=== PATIENT | female | born 2000 | race Caucasian/White ===

== ENCOUNTER 2025-02-09 09:55 | Inpatient (IN) ==
--- NOTE | 2025-02-09 10:57 | XRay Report ---
XR chest 1V portable CLINICAL HISTORY: Pneumonia. COMPARISON STUDY: No previous studies for comparison. FINDINGS: Left clavicular internal fixation is incidentally noted. Lung volumes are mildly diminished . Cardiac size is normal. Mediastinal contours are normal. There is no pneumothorax or pleural effusi on. There is apparent mild asymmetric left lower lung opacity. IMPRESSION: Mild left lower lung opacity. Although possibly artifactual or atelectatic, pneumonia cou ld appear similar. Radiographic follow-up is recommended to ensure resolution. ACT 112: Negative or not required by law. Electronically signed by: Awais Hernandez M.D. 02/09/2025 10:56 AM
[2025-02-09 11:09] LABS: Hematocrit (blood only) 33.5 % (37.0-47.0); Hemoglobin 11.6 g/dl (12.0-16.0); Immature Granulocytes # (auto) 0.10 K/uL (0.01-0.20); Immature Granulocytes % (auto) 0.6 %; Mean Corpuscular Hemoglobin 29.4 pg (25.0-34.0); Mean Corpuscular Volume 85.0 fL (80.0-100.0); Platelet Count 217 K/uL (130-400); RDW Standard Deviation 36.0 fL (36.4-46.3); Red Blood Count 3.94 M/uL (4.20-5.40); White Blood Count 16.89 K/ul (4.8-10.8)
--- NOTE | 2025-02-09 11:32 | Emergency Department Note ---
Impression & Plan Pyelonephritis, Cystitis ED Provider Note NAME: LEFTY TO AGE: 24 SEX: F : 2000 ARRIVES VIA: Walk-In INFORMANT: Patient, ED PROVIDER(S): Liam Baxter MD CHIEF COMPLAINT: Left flank pain HPI: This is a 24-year-old female presented for left flank pain. She notes body wide aching but also particularly worse on her left side. She notes pain is in her chest, back, flank. She reports feel he has a flu. She has no dysuria,, hematuria. She has no shortness of breath. She has mild pleurisy otherwise. ROS: See above HPI for pertinent positives & negatives. A total of 10 systems reviewed and were otherwise negative. PAST MEDICAL HISTORY: See Below PAST SURGICAL HISTORY: See Below FAMILY HISTORY: See Below SOCIAL HISTORY: See Below HOME MEDICATIONS: See Below ALLERGIES: See Below VITALS: See Below PHYSICAL EXAMINATION: General: resting comfortably in no acute distress Head: Normocephalic and atraumatic Eyes: Normal inspection, extraocular muscles intact Ear, nose, throat: Normal external exam Neck: Normal range of motion Respiratory: lungs clear to auscultation bilaterally Cardiovascular: Regular rate/rhythm, no murmur GI: soft, nontender, no guarding or rebound Extremities: nontender, moves all extremities Neuro: The patient awake and alert, appropriately conversive, no focal deficits, symmetric faces Skin: Warm, dry, and intact MEDICAL DECISION MAKING: This is a 24-year-old female present for left flank pain. Consider PE, pneumonia, pyelonephritis, sepsis. Patient is tachycardic without significant hypotension. Not hypoxic. - Leukocytosis is almost 17. Patient troponin is negative at this time. D- dimer elevated 1999. - CT imaging of the chest, abdomen and pelvis reveals no PE or pneumonia. Does reveal cystitis with ascending infection bilaterally and left pyelonephritis. - Patient given ceftriaxone - Will meet the patient due to significant pain, significant tachycardia and significant infection - Care discussed with [facility] service for admission under Dr. Conrad Differential diagnosis: Sepsis, pneumonia, PE, pyonephritis Independent History obtained from: Grandmother Diagnostics interpreted by me: ECG: None Cardiac Monitoring: An order was placed for continuous cardiac monitoring. The monitor shows a rate of 99 with sinus rhythm. Past Med/Surg History Problem List (Updated 02/09/25 @ 17:39 by Liam Baxter MD) Cystitis (Acute) Pyelonephritis (Acute) Medical History History of kidney stones Family History Father Hypertension Social History Smoking Status: Never smoker Hx Alcohol Use: Yes (4 drinks a week) Hx Substance Use: No Preferred Language: Romansh Feels Safe at Home: Yes Allergies Allergies Allergy/AdvReac Type Severity Reaction Status Date / Time No Known Allergies Allergy Verified 02/09/25 13:34 Home Meds Home Medications Medication Instructions Recorded Confirmed desogestrel 0.15 mg-ethinyl 1 tab PO HS 02/09/25 02/09/25 estradiol 0.03 mg tablet (Enskyce) Results & Data (ED) Vital Signs Vital Signs - 24 hr 02/09/25 09:58 02/09/25 10:48 02/09/25 11:00 Temperature 37.3 C Temperature Source Temporal Artery Scan Pulse Rate 122 H 108 H 107 H Pulse Rate from SpO2 Sensor 109 H 107 H Respiratory Rate 19 28 H 29 H Respiratory Effort / Characteristics Non-Labored Spontaneous Respiratory Depth Normal Blood Pressure 128/71 132/68 133/66 Blood Pressure Mean 90 89 88 Blood Pressure Position Sitting Pulse Oximetry 99 98 100 Oxygen Delivery Method Room Air Room Air Room Air Sepsis Recent Fever Within 48 Hours No Sepsis New/Unexplained Change in Mental Status No Sepsis Action Taken by Nursing No Action Required 02/09/25 11:30 02/09/25 12:00 02/09/25 12:25 Temperature Temperature Source Pulse Rate 110 H 109 H 97 H Pulse Rate from SpO2 Sensor Respiratory Rate 22 20 Respiratory Effort / Characteristics Respiratory Depth Blood Pressure 117/63 116/61 Blood Pressure Mean 81 89 Blood Pressure Position Pulse Oximetry 99 98 Oxygen Delivery Method Room Air Room Air Sepsis Recent Fever Within 48 Hours Sepsis New/Unexplained Change in Mental Status Sepsis Action Taken by Nursing 02/09/25 13:30 02/09/25 15:00 02/09/25 15:39 Temperature Temperature Source Pulse Rate 97 H 109 H Pulse Rate from SpO2 Sensor 110 H Respiratory Rate 24 33 H Respiratory Effort / Characteristics Respiratory Depth Blood Pressure 107/74 119/64 Blood Pressure Mean 75 87 Blood Pressure Position Pulse Oximetry 97 99 Oxygen Delivery Method Room Air Room Air Sepsis Recent Fever Within 48 Hours Sepsis New/Unexplained Change in Mental Status Sepsis Action Taken by Nursing 02/09/25 16:00 02/09/25 16:00 02/09/25 16:35 Temperature Temperature Source Pulse Rate 99 H 99 H Pulse Rate from SpO2 Sensor 98 H Respiratory Rate 29 H Respiratory Effort / Characteristics Respiratory Depth Blood Pressure 135/72 Blood Pressure Mean 91 Blood Pressure Position Pulse Oximetry 99 Oxygen Delivery Method Room Air Sepsis Recent Fever Within 48 Hours Sepsis New/Unexplained Change in Mental Status Sepsis Action Taken by Nursing 02/09/25 17:15 Temperature 37.8 C H Temperature Source Oral Pulse Rate Pulse Rate from SpO2 Sensor Respiratory Rate 22 Respiratory Effort / Characteristics Respiratory Depth Blood Pressure Blood Pressure Mean Blood Pressure Position Pulse Oximetry Oxygen Delivery Method Sepsis Recent Fever Within 48 Hours Sepsis New/Unexplained Change in Mental Status Sepsis Action Taken by Nursing Laboratory Data 02/09/25 10:44 02/09/25 10:44 Lab Results 02/09/25 02/09/25 Range/Units 10:44 13:39 WBC 16.89 H (4.8-10.8) K/ul RBC 3.94 L (4.20-5.40) M/uL Hgb 11.6 L (12.0-16.0) g/dl Hct 33.5 L (37.0-47.0) % MCV 85.0 (80.0-100.0) fL MCH 29.4 (25.0-34.0) pg MCHC 34.6 (32.0-36.0) g/dL RDW Std Deviation 36.0 L (36.4-46.3) fL RDW Coeff of Wenceslao 11.7 (11.5-14.5) % Plt Count 217 (130-400) K/uL MPV 9.9 (9.4-12.4) fL Immature Gran % (Auto) 0.6 % Neut % (Auto) 81.8 % Lymph % (Auto) 7.6 % Dale % (Auto) 9.8 % Eos % (Auto) 0.1 % Baso % (Auto) 0.1 % Neut # (Auto) 13.82 H (1.40-6.50) K/uL Lymph # (Auto) 1.29 (1.20-3.40) K/uL Dale # (Auto) 1.65 H (0.11-0.59) K/uL Eos # (Auto) 0.01 (0.00-0.50) K/uL Baso # (Auto) 0.02 (0.00-0.20) K/uL Immature Gran # (Auto) 0.10 (0.01-0.20) K/uL D-Dimer 2000 H* (0-500) ug/L FEU Sodium 136 (136-145) mmol/L Potassium 3.4 L (3.5-5.1) mmol/L Chloride 106 (98-107) mmol/L Carbon Dioxide 22 (21-32) mmol/L Anion Gap 8 (3-11) BUN 7 (6-23) mg/dl Creatinine 0.92 (0.6-1.2) mg/dl Est Cr Clr Drug Dosing 103.9 ml/min eGFR 89.73 BUN/Creatinine Ratio 7.6 L (10-20) Glucose 118 H (70-99(Fasting)) mg/dl Calcium 8.3 L (8.6-10.3) mg/dl Magnesium 1.5 L (1.7-2.4) mg/dl Total Bilirubin 0.4 (0.2-1.0) mg/dl AST 12 L (13-39) U/L ALT 6 L (7-52) U/L Alkaline Phosphatase 41 (34-104) U/L Troponin I High Sens 6.1 (0-14) pg/ml Total Protein 6.5 (6.0-8.3) gm/dl Albumin 3.7 (3.4-5.0) gm/dl Globulin 2.8 (2.5-4.0) gm/dl Albumin/Globulin Ratio 1.3 (0.9-2) Lipase 8 L (11-82) U/L HCG, Qual Negative (Negative) Urine Color Yellow Urine Appearance Clear (Clear) Urine pH 6.5 (4.5-7.5) Ur Specific [place] > 1.045 H (1.000-1.030) Urine Protein 1+ H (Negative) Urine Glucose (UA) Negative (Negative) Urine Ketones 2+ H (Negative) Urine Blood Trace H (Negative) Urine Nitrite Positive A (Negative) Urine Bilirubin Negative (Negative) Urine Urobilinogen Negative (Negative) Ur Leukocyte Esterase 2+ H (Negative) Urine WBC (Auto) >50 H (0-5) /hpf Urine RBC (Auto) 0-2 (0-2) /hpf U Hyaline Cast (Auto) 0-2 (0-2) /lpf U Epithel Cells (Auto) 6-10 H (0-2) /hpf Urine Bacteria (Auto) 4+ H (None Seen) Urine Comment Adenovirus (PCR) Not Detected (NotDetected) B. pertussis DNA (PCR) Not Detected (NotDetected) B.parapertussis DNA PCR Not Detected (NotDetected) C. pneumoniae DNA (PCR) Not Detected (NotDetected) Coronavirus OC43 (PCR) Not Detected (NotDetected) Coronavirus HKU1 (PCR) Not Detected (NotDetected) Coronavirus 229E (PCR) Not Detected (NotDetected) SARS-CoV-2 (PCR) Not Detected (NotDetected) Coronavirus NL63 (PCR) Not Detected (NotDetected) Human Metapneumovir PCR Not Detected (NotDetected) Influenza Type A (PCR) Not Detected (NotDetected) Influenza Type B (PCR) Not Detected (NotDetected) M. pneumoniae (PCR) Not Detected (NotDetected) Parainfluenza 1 (PCR) Not Detected (NotDetected) Parainfluenza 2 (PCR) Not Detected (NotDetected) Parainfluenza 3 (PCR) Not Detected (NotDetected) Parainfluenza 4 (PCR) Not Detected (NotDetected) RSV (PCR) Not Detected (NotDetected) Entero/Rhino (PCR) Not Detected (NotDetected) Administered Medications Magnesium Sulfate/Dextrose (Magnesium Sulfate / D5w) 1 gm in 100 mls @ 50 mls/hr IV ONE ONE Stop: 02/09/25 18:13 Last Admin: 02/09/25 16:27 Dose: 50 mls/hr Documented By: CAP Sodium Chloride (Nss) 1,000 mls @ 999 mls/hr IV .Q1H1M ONE Stop: 02/09/25 18:19 Last Admin: 02/09/25 17:27 Dose: 999 mls/hr Documented By: CAP Discontinued Medications Ceftriaxone Sodium (Rocephin) 2,000 mg in 50 mls @ 100 mls/hr IV NOW STA Stop: 02/09/25 13:35 Last Infusion: 02/09/25 16:10 Dose: Infused Documented By: Admin: 02/09/25 15:39 Dose: 100 mls/hr Documented By: CAP Sodium Chloride (Nss) 1,000 mls @ 999 mls/hr IV .Q1H1M ONE Stop: 02/09/25 15:13 Last Admin: 02/09/25 15:39 Dose: 999 mls/hr Documented By: CAP Acetaminophen (Ofirmev) 1,000 mg in 100 mls @ 400 mls/hr IV NOW STA Stop: 02/09/25 15:56 Last Infusion: 02/09/25 16:26 Dose: Infused Documented By: Admin: 02/09/25 16:09 Dose: 400 mls/hr Documented By: JUDIE Ibuprofen (Ibuprofen 600 Mg Tab) 600 mg PO NOW STA Stop: 02/09/25 17:18 Last Admin: 02/09/25 17:27 Dose: 600 mg Documented By: JUDIE Ioversol (Optiray 320 125ml) 118 ml IV ONCE ONE Stop: 02/09/25 12:34 Last Admin: 02/09/25 12:34 Dose: 118 ml Documented By: MARK Ketorolac Tromethamine (Ketorolac Tromethamine 15 Mg/Ml Vial) 15 mg IV NOW ONE Stop: 02/09/25 11:40 Last Admin: 02/09/25 11:52 Dose: 15 mg Documented By: ABI Potassium Chloride (Potassium Chloride 10 Meq Tabcr) 40 meq PO NOW STA Stop: 02/09/25 14:50 Last Admin: 02/09/25 15:38 Dose: 40 meq Documented By: JUDIE Imaging Data Radiologist's Impression: Chest X-Ray 02/09/25 10:37 XR chest 1V portable CLINICAL HISTORY: Pneumonia. COMPARISON STUDY: No previous studies for comparison. FINDINGS: Left clavicular internal fixation is incidentally noted. Lung volumes are mildly diminished. Cardiac size is normal. Mediastinal contours are normal. There is no pneumothorax or pleural effusion. There is apparent mild asymmetric left lower lung opacity. IMPRESSION: Mild left lower lung opacity. Although possibly artifactual or atelectatic, pneumonia could appear similar. Radiographic follow-up is recommended to ensure resolution. ACT 112: Negative or not required by law. Electronically signed by: Awais Hernandez M.D. 02/09/2025 10:56 AM Abdomen/Pelvis CT 02/09/25 12:09 CT ANGIOGRAM OF THE CHEST; CT SCAN OF THE ABDOMEN AND PELVIS WITH IV CONTRAST CLINICAL HISTORY: Elevated d-dimer. Tachycardia. Left flank pain. COMPARISON STUDY: Chest x-ray dated 02/09/2025 TECHNIQUE: Following the IV administration of 118 of Optiray 320, CT angiogram of the chest is performed from the upper abdomen to the thoracic inlet utilizing the pulmonary embolus protocol. Images are reviewed in the axial, sagittal, coronal planes. 3-D MIPS images are created and assessed. Subsequently, CT scan of the abdomen and pelvis was performed from the lung bases to the proximal femora. Images are reviewed in the axial, sagittal, and coronal planes. IV contrast was administered without complication. A dose lowering technique was utilized adhering to the principles of ALARA. CT DOSE: 2165.1 mGy.cm FINDINGS: CHEST: Thyroid: Imaged portions of the thyroid gland are normal in size and attenuation. Thoracic aorta: The thoracic aorta is normal in caliber and demonstrates standard 3-vessel arch anatomy. No dissection is seen. Pulmonary vasculature: The pulmonary trunk is normal in caliber. There are no filling defects identified in the main, lobar, or segmental pulmonary arteries to indicate pulmonary embolus. Heart: The heart is normal in size and without pericardial effusion. Lungs and pleural spaces: There are trace pleural effusions with dependent atelectasis. No airspace consolidation is seen typical for pneumonia. The trachea and central airways are clear. Mediastinum: There is no mediastinal lymphadenopathy. Yulisa: Clear. Axillae: There is no axillary lymphadenopathy. Bony thorax: No lytic or blastic lesions are identified. There is chronic deformity and postsurgical change seen in the left clavicle. ABDOMEN AND PELVIS: Liver: The contrast-enhanced liver is mildly enlarged measuring 18.3 cm in length. Attenuation is mildly diminished suggesting steatosis. Fatty infiltration is seen adjacent to the falciform ligament. There is no intrahepatic biliary ductal dilatation. The hepatic veins and portal veins are patent. Gallbladder: Unremarkable. Spleen: Normal in size and attenuation. Pancreas: Unremarkable. Adrenal glands: Unremarkable. Kidneys: The contrast enhanced kidneys are normal in size and without hydronephrosis. Mild urothelial thickening and enhancement is seen involving both ureters with faint surrounding infiltration. There is heterogeneous enhancement of the left kidney with left-sided perinephric stranding and fluid. The right kidney enhances normally. A circumaortic left renal vein is incidentally noted. Abdominal vasculature: The abdominal aorta is normal in course and caliber. Bowel: There is mild clonic fecal attention. No bowel obstruction is seen. The appendix is well-visualized and normal. Peritoneum: There is no intraperitoneal free air or abdominal ascites. There is a fat-containing umbilical hernia. A navel piercing is in place. Lymphadenopathy: None. Pelvic viscera: There is mild pericystic infiltration. The uterus and adnexa are normal as visualized noting bilateral ovarian follicles. There is free fluid in the cul-de-sac. Skeletal structures: No lytic or blastic lesions are seen. IMPRESSION: 1. There is no evidence of pulmonary embolus in the main, lobar, or segmental pulmonary arteries. 2. Trace pleural effusions with dependent atelectasis. 3. There is evidence of cystitis with bilateral ascending urinary tract infection and left-sided pyelonephritis. Correlate with clinical findings and urinalysis. 4. Free fluid in the cul-de-sac is nonspecific and likely within physiologic limits. 5. The liver is mildly enlarged and steatotic. 6. Additional findings as above. ACT 112: Negative or not required by law. Electronically signed by: Ronnie Alcazar M.D. 02/09/2025 12:56 PM Chest CTA 02/09/25 12:09 CT ANGIOGRAM OF THE CHEST; CT SCAN OF THE ABDOMEN AND PELVIS WITH IV CONTRAST CLINICAL HISTORY: Elevated d-dimer. Tachycardia. Left flank pain. COMPARISON STUDY: Chest x-ray dated 02/09/2025 TECHNIQUE: Following the IV administration of 118 of Optiray 320, CT angiogram of the chest is performed from the upper abdomen to the thoracic inlet utilizing the pulmonary embolus protocol. Images are reviewed in the axial, sagittal, coronal planes. 3-D MIPS images are created and assessed. Subsequently, CT scan of the abdomen and pelvis was performed from the lung bases to the proximal femora. Images are reviewed in the axial, sagittal, and coronal planes. IV contrast was administered without complication. A dose lowering technique was utilized adhering to the principles of ALARA. CT DOSE: 2165.1 mGy.cm FINDINGS: CHEST: Thyroid: Imaged portions of the thyroid gland are normal in size and attenuation. Thoracic aorta: The thoracic aorta is normal in caliber and demonstrates standard 3-vessel arch anatomy. No dissection is seen. Pulmonary vasculature: The pulmonary trunk is normal in caliber. There are no filling defects identified in the main, lobar, or segmental pulmonary arteries to indicate pulmonary embolus. Heart: The heart is normal in size and without pericardial effusion. Lungs and pleural spaces: There are trace pleural effusions with dependent atelectasis. No airspace consolidation is seen typical for pneumonia. The trachea and central airways are clear. Mediastinum: There is no mediastinal lymphadenopathy. Yulisa: Clear. Axillae: There is no axillary lymphadenopathy. Bony thorax: No lytic or blastic lesions are identified. There is chronic deformity and postsurgical change seen in the left clavicle. ABDOMEN AND PELVIS: Liver: The contrast-enhanced liver is mildly enlarged measuring 18.3 cm in length. Attenuation is mildly diminished suggesting steatosis. Fatty infiltration is seen adjacent to the falciform ligament. There is no intrahepatic biliary ductal dilatation. The hepatic veins and portal veins are patent. Gallbladder: Unremarkable. Spleen: Normal in size and attenuation. Pancreas: Unremarkable. Adrenal glands: Unremarkable. Kidneys: The contrast enhanced kidneys are normal in size and without hydronephrosis. Mild urothelial thickening and enhancement is seen involving both ureters with faint surrounding infiltration. There is heterogeneous enhancement of the left kidney with left-sided perinephric stranding and fluid. The right kidney enhances normally. A circumaortic left renal vein is incidentally noted. Abdominal vasculature: The abdominal aorta is normal in course and caliber. Bowel: There is mild clonic fecal attention. No bowel obstruction is seen. The appendix is well-visualized and normal. Peritoneum: There is no intraperitoneal free air or abdominal ascites. There is a fat-containing umbilical hernia. A navel piercing is in place. Lymphadenopathy: None. Pelvic viscera: There is mild pericystic infiltration. The uterus and adnexa are normal as visualized noting bilateral ovarian follicles. There is free fluid in the cul-de-sac. Skeletal structures: No lytic or blastic lesions are seen. IMPRESSION: 1. There is no evidence of pulmonary embolus in the main, lobar, or segmental pulmonary arteries. 2. Trace pleural effusions with dependent atelectasis. 3. There is evidence of cystitis with bilateral ascending urinary tract infection and left-sided pyelonephritis. Correlate with clinical findings and urinalysis. 4. Free fluid in the cul-de-sac is nonspecific and likely within physiologic limits. 5. The liver is mildly enlarged and steatotic. 6. Additional findings as above. ACT 112: Negative or not required by law. Electronically signed by: Ronnie Alcazar M.D. 02/09/2025 12:56 PM Venous Doppler Study 02/09/25 14:47 ULTRASOUND BILATERAL LOWER EXTREMITY VENOUS CLINICAL HISTORY: Elevated d-dimer. COMPARISON STUDY: No prior TECHNIQUE: Real-time, grayscale, and color Doppler sonography of the deep veins of the right and left lower extremity was performed from the inguinal crease to the calf. Compression and augmentation were utilized. FINDINGS: There is no sonographic evidence of deep venous thrombosis identified in the right or left lower extremity. The common femoral, superficial femoral, and popliteal veins are patent and normally compressible bilaterally. The greater saphenous vein and the profunda femoris vein at the junction with the common femoral vein are clear in both legs. The visualized calf veins are patent bilaterally. IMPRESSION: There is no sonographic evidence of deep venous thrombosis identified in the right or left lower extremity. ACT 112: Negative or not required by law. Electronically signed by: Ronnie Alcazar M.D. 02/09/2025 3:35 PM Discharge Plan Visit Data Chief Complaint: Back Injury/Pain Stated Complaint: BACK LOWER PAIN/FEVER/CHILLS/HURTS TO BREATHE ON L ED Provider: Liam Baxter Discharge Problem: Pyelonephritis, Cystitis Patient Disposition: Admitted As Inpatient Condition: Fair Forms Stand Alone Forms: [employer] Prescriptions Prescriptions: No Action desogestrel-ethinyl estradiol [Enskyce] 0.15-0.03 mg tablet 1 tab PO HS Referrals Referrals: PCP,NO [Primary Care Provider] -
[2025-02-09 11:36] LABS: Alanine Aminotransferase 6.0 U/L (7-52); Albumin Globulin Ratio 1.3 (0.9-2); Alkaline Phosphatase 41.0 U/L (34-104); Anion Gap 8.0 (3-11); Bilirubin,Total 0.4 mg/dl (0.2-1.0); Blood Urea Nitrogen 7.0 mg/dl (6-23); Calcium 8.3 mg/dl (8.6-10.3); Carbon Dioxide 22.0 mmol/L (21-32); Chloride 106.0 mmol/L (98-107); Creatinine Clr Calc Pharmacy 103.9 ml/min; Globulin 2.8 gm/dl (2.5-4.0); Glucose 118.0 mg/dl (70-99(Fasting)); Lipase 8.0 U/L (11-82); Potassium 3.4 mmol/L (3.5-5.1); Sodium 136.0 mmol/L (136-145); Total Protein 6.5 gm/dl (6.0-8.3)
[2025-02-09 11:43] LABS: Pregnancy Test, Serum Negative (Negative)
[2025-02-09] MEDS: KETOROLAC TROMETHAMINE 15 MG/ML VIAL IV ONE (11:52)
[2025-02-09] MEDS: OPTIRAY 320 125ml IV ONE (12:34)
[2025-02-09 12:35] LABS: Chlamydia pneumoniae PCR Not Detected (NotDetected); Coronavirus 229E PCR Not Detected (NotDetected); Coronavirus CoV-2 (COVID19)PCR Not Detected (NotDetected); Coronavirus HKU1 PCR Not Detected (NotDetected); Coronavirus NL63 PCR Not Detected (NotDetected); Coronavirus OC43PCR Not Detected (NotDetected); Human Metapneumovirus PCR Not Detected (NotDetected); Parainfluenza Virus 1 PCR Not Detected (NotDetected); Parainfluenza Virus 2 PCR Not Detected (NotDetected); Parainfluenza Virus 3 PCR Not Detected (NotDetected); Parainfluenza Virus 4 PCR Not Detected (NotDetected); Respiratory Syncytial VirusPCR Not Detected (NotDetected); Rhinovirus/Enterovirus PCR Not Detected (NotDetected)
--- NOTE | 2025-02-09 12:57 | CT Scan Report ---
CT ANGIOGRAM OF THE CHEST; CT SCAN OF THE ABDOMEN AND PELVIS WITH IV CONTRAST CLINICAL HISTORY: Elevated d-dimer. Tachycardia. Left flank pain. COMPARISON STUDY: Chest x-ray dated 02/09/2025 TECHNIQUE: Following the IV administration of 118 of Optiray 320, CT angiogram of the chest is perfor med from the upper abdomen to the thoracic inlet utilizing the pulmonary embolus protocol. Images are reviewed in the axial, sagittal, coronal planes. 3-D MIPS images are created and assessed. Subsequen tly, CT scan of the abdomen and pelvis was performed from the lung bases to the proximal femora. Imag es are reviewed in the axial, sagittal, and coronal planes. IV contrast was administered without comp lication. A dose lowering technique was utilized adhering to the principles of ALARA. CT DOSE: 2165.1 mGy.cm FINDINGS: CHEST: Thyroid: Imaged portions of the thyroid gland are normal in size and attenuation. Thoracic aorta: The thoracic aorta is normal in caliber and demonstrates standard 3-vessel arch anato my. No dissection is seen. Pulmonary vasculature: The pulmonary trunk is normal in caliber. There are no filling defects identif ied in the main, lobar, or segmental pulmonary arteries to indicate pulmonary embolus. Heart: The heart is normal in size and without pericardial effusion. Lungs and pleural spaces: There are trace pleural effusions with dependent atelectasis. No airspace c onsolidation is seen typical for pneumonia. The trachea and central airways are clear. Mediastinum: There is no mediastinal lymphadenopathy. Yulisa: Clear. Axillae: There is no axillary lymphadenopathy. Bony thorax: No lytic or blastic lesions are identified. There is chronic deformity and postsurgical change seen in the left clavicle. ABDOMEN AND PELVIS: Liver: The contrast-enhanced liver is mildly enlarged measuring 18.3 cm in length. Attenuation is mil dly diminished suggesting steatosis. Fatty infiltration is seen adjacent to the falciform ligament. T here is no intrahepatic biliary ductal dilatation. The hepatic veins and portal veins are patent. Gallbladder: Unremarkable. Spleen: Normal in size and attenuation. Pancreas: Unremarkable. Adrenal glands: Unremarkable. Kidneys: The contrast enhanced kidneys are normal in size and without hydronephrosis. Mild urothelial thickening and enhancement is seen involving both ureters with faint surrounding infiltration. There is heterogeneous enhancement of the left kidney with left-sided perinephric stranding and fluid. The right kidney enhances normally. A circumaortic left renal vein is incidentally noted. Abdominal vasculature: The abdominal aorta is normal in course and caliber. Bowel: There is mild clonic fecal attention. No bowel obstruction is seen. The appendix is well-visu alized and normal. Peritoneum: There is no intraperitoneal free air or abdominal ascites. There is a fat-containing umbi lical hernia. A navel piercing is in place. Lymphadenopathy: None. Pelvic viscera: There is mild pericystic infiltration. The uterus and adnexa are normal as visualized noting bilateral ovarian follicles. There is free fluid in the cul-de-sac. Skeletal structures: No lytic or blastic lesions are seen. IMPRESSION: 1. There is no evidence of pulmonary embolus in the main, lobar, or segmental pulmonary arteries. 2. Trace pleural effusions with dependent atelectasis. 3. There is evidence of cystitis with bilateral ascending urinary tract infection and left-sided pyel onephritis. Correlate with clinical findings and urinalysis. 4. Free fluid in the cul-de-sac is nonspecific and likely within physiologic limits. 5. The liver is mildly enlarged and steatotic. 6. Additional findings as above. ACT 112: Negative or not required by law. Electronically signed by: Ronnie Alcazar M.D. 02/09/2025 12:56 PM
[2025-02-09 13:53] LABS: Appearance Urine Clear (Clear); Bacteria Urine Automated 4+ (None Seen); Cast Urine Automated 0-2 /lpf (0-2); Glucose Urine UA Negative (Negative); RBC Urine Automated 0-2 /hpf (0-2); WBC Urine Automated >50 /hpf (0-5)
--- NOTE | 2025-02-09 14:54 | Communication Note ---
Date of Service: February 09, 2025 Attending Addendum: Case reviewed with the advanced practitioner. I have personally performed a history and physical examination on the patient. I have reviewed the advanced practitioner's documentation on the date of service referenced in note, and I agree with, and take responsibility for the plan of care. please refer to her notes for full details patient seen and examined, records reviewed by myself as well on exam, patient seen resting in bed, mother at bedside visiting, present throughout whole encounter states she feels very cold has some L lower abdominal discomfort, mild dysuria, no hematuria no chest pain, dyspnea, palpitations, dizziness no other symptoms VS noted and reviewed oriented x3, not in distress, speaks in sentences with no effort nor accessory muscle use normal rate, regular rhythm, no murmurs clear breath sounds bilaterally non distended, soft, mild LLQ tenderness no CVA tenderness no bipedal edema, erythema, warmth no neuro deficits all labs, imaging noted and reviewed ASSESSMENT AND PLAN> LEFT PYELONEPHRITIS UTI POSSIBLE SEPSIS HISTORY OF NEPHROLITHIASIS CT abd/pelvis: 1. There is no evidence of pulmonary embolus in the main, lobar, or segmental pulmonary arteries. 2. Trace pleural effusions with dependent atelectasis. 3. There is evidence of cystitis with bilateral ascending urinary tract infection and left-sided pyelonephritis. Correlate with clinical findings and urinalysis. 4. Free fluid in the cul-de-sac is nonspecific and likely within physiologic limits. 5. The liver is mildly enlarged and steatotic. 6. Additional findings as above. no previous history of UTI lactic acid ordered urine culture: pending blood culture: pending IV Ceftriaxone IV fluids DEHYDRATION HYPOKALEMIA FROM EMESIS IV NSS replace K ELEVATED D DIMER 1999 CT angio chest: No PE check Doppler US legs FATTY LIVER seen on CT abd/pelvis Further work up, management, and ff up as outpatient other diagnoses and plan of care as per advanced practitioner's notes I spent a total of 40 minutes coordinating, documenting, and providing care for this patient, excluding time spent in the performance of separately billed services or time spent by another provider/QHP. Jamie Conrad MD
--- NOTE | 2025-02-09 14:57 | History & Physical Report ---
Date of Service February 09, 2025 Assessment & Plan (1) Pyelonephritis: Plan: Patient is 24 year old female with PMH kidney stone presented to ER with c/o left flank pain x 5 days. Tactile fevers, N&V x 2 days, today urinary urgency. WBC: 16.8 with left shift, Lactate: WNL, UA: + Nitrate, 2+ leuk esterase,> 50 WBC, 4+ bacteria, 1+ protein, 2+ ketones CT abdomen pelvis: There is evidence of cystitis with bilateral ascending urinary tract infection and left-sided pyelonephritis. Correlate with clinical findings and urinalysis. Free fluid in the cul-de-sac is nonspecific and likely within physiologic limits. The liver is mildly enlarged and steatotic. In ER afebrile, P: 122, R: 19, BP 128/71, 99% on room air In ER given Rocephin, Toradol Patient reassessed at 13:30, P: 97, R: 24, BP 107/74, 97% on room air, lungs CTA, regular rate rhythm, brisk capillary refill, skin hot and moist Start IVF Obtain lactate Blood cultures pending Continue Rocephin CBC in am #Elevated D-Dimer D-Dimer: 1999 CTA Chest: There is no evidence of pulmonary embolus in the main, lobar, or segmental pulmonary arteries. Trace pleural effusions with dependent atelectasis. Obtain venous doppler BLE to r/o DVT Likely elevated secondary to underlying infection #Hypokalemia K: 3.4 Replace and monitor BMP, magnesium Likely secondary to vomiting #History Kidney Stones No stone noted on CT abd/pelvis today DVT Prophylaxis SCDs, ambulate Admit med surg Full Code Does not follow with PCP for routine care Pt was seen and care coordinated with Dr Conrad. See addendum I spent a total of 60 minutes reviewing notes, outpatient records, labs, medication, coordinating, documenting and providing care for this patient excluding time spent in the performance of separately billed services and excluding time spent by another provider/QHP. History of Present Illness Chief Complaint: left flank pain x 5 days Primary Care Provider: NO PCP Patient is 24 year old female with PMH kidney stone presented to ER with c/o left flank pain x 5 days. Patient states 5 days ago started with aching to left back with some radiation to left flank. She thought at first she may be getting a kidney stone however pain was not as severe as past stone. States history kidney stone that self passed. She states then started with aching pain across lower abdomen as well as left flank and left pain and somewhat into left chest area. Past 2 days with tactile fevers and chills. Did not measure home temperature. Taking ibuprofen with limited relief. States past 2 days with nausea. Had 3 episodes of emesis past 24 hours. Today with urinary urgency with little urine output. Denies hematuria, dysuria, urinary retention. States last BM 5 days ago. Denies history UTI. Denies vaginal symptoms. Denies hematemesis, HEATON, dizziness, syncope, neck pain, SOB, palpitations, cough, sore throat, rhinorrhea, paresthesias, extremity weakness, extremity edema, rashes. Allergies Allergy/AdvReac Type Severity Reaction Status Date / Time No Known Allergies Allergy Verified 02/09/25 13:34 Home Medications Medication Instructions Recorded Confirmed Type desogestrel 0.15 mg-ethinyl 1 tab PO HS 02/09/25 02/09/25 History estradiol 0.03 mg tablet (Enskyce) Past Med/Surg History Problem List (Updated 02/09/25 @ 17:39 by Liam Baxter MD) Cystitis (Acute) Pyelonephritis (Acute) Medical History History of kidney stones Family History Father Hypertension Social History Smoking Status: Never smoker Hx Alcohol Use: Yes (4 drinks a week) Hx Substance Use: No Preferred Language: Urdu Feels Safe at Home: Yes Review of Systems Review of Systems: All systems reviewed & are unremarkable except as noted in HPI & below Physical Exam Physical Exam: General: no distress, WDWN Head: normocephalic, atraumatic Eyes: conjunctiva non-injected, anicteric ENT: normal inspection external ears, nose, mucous membranes dry Neck: supple, trachea midline, non-tender Lungs: clear, no respiratory distress, no wheezing/rhonchi/rales CV: RRR, no murmur, no pretibial edema Abd: normal BS, soft, +tenderness left flank Ext: no cyanosis, no calf tenderness Neuro: A&O x 3, no focal deficits noted, normal affect Skin: +hot, diaphoretic Results & Data Results & Data Vital Signs (Past 12 Hours) Vital Signs Temp Pulse Resp BP Pulse Ox O2 Del Method 02/09/25 13:30 97 H 24 107/74 97 Room Air 02/09/25 12:25 97 H 02/09/25 12:00 109 H 20 116/61 98 Room Air 02/09/25 11:30 110 H 22 117/63 99 Room Air 02/09/25 11:00 107 H 29 H 133/66 100 Room Air 02/09/25 10:48 108 H 28 H 132/68 98 Room Air 02/09/25 09:58 37.3 C 122 H 19 128/71 99 Room Air Laboratory Results Short CBC 02/09/25 Range/Units 10:44 WBC 16.89 H (4.8-10.8) K/ul Hgb 11.6 L (12.0-16.0) g/dl Hct 33.5 L (37.0-47.0) % Plt Count 217 (130-400) K/uL BMP 02/09/25 10:44 Sodium 136 Potassium 3.4 L Chloride 106 Carbon Dioxide 22 BUN 7 Creatinine 0.92 Glucose 118 H Calcium 8.3 L Liver Function 02/09/25 Range/Units 10:44 Total Bilirubin 0.4 (0.2-1.0) mg/dl AST 12 L (13-39) U/L ALT 6 L (7-52) U/L Alkaline Phosphatase 41 (34-104) U/L Albumin 3.7 (3.4-5.0) gm/dl Urine 02/09/25 Range/Units 13:39 Urine Color Yellow Urine Appearance Clear (Clear) Urine pH 6.5 (4.5-7.5) Ur Specific [place] > 1.045 H (1.000-1.030) Urine Protein 1+ H (Negative) Urine Glucose (UA) Negative (Negative) Diagnostic Findings Chest X-Ray 02/09/25 10:37 XR chest 1V portable CLINICAL HISTORY: Pneumonia. COMPARISON STUDY: No previous studies for comparison. FINDINGS: Left clavicular internal fixation is incidentally noted. Lung volumes are mildly diminished. Cardiac size is normal. Mediastinal contours are normal. There is no pneumothorax or pleural effusion. There is apparent mild asymmetric left lower lung opacity. IMPRESSION: Mild left lower lung opacity. Although possibly artifactual or atelectatic, pneumonia could appear similar. Radiographic follow-up is recommended to ensure resolution. ACT 112: Negative or not required by law. Electronically signed by: Awais Hernandez M.D. 02/09/2025 10:56 AM Abdomen/Pelvis CT 02/09/25 12:09 CT ANGIOGRAM OF THE CHEST; CT SCAN OF THE ABDOMEN AND PELVIS WITH IV CONTRAST CLINICAL HISTORY: Elevated d-dimer. Tachycardia. Left flank pain. COMPARISON STUDY: Chest x-ray dated 02/09/2025 TECHNIQUE: Following the IV administration of 118 of Optiray 320, CT angiogram of the chest is performed from the upper abdomen to the thoracic inlet utilizing the pulmonary embolus protocol. Images are reviewed in the axial, sagittal, coronal planes. 3-D MIPS images are created and assessed. Subsequently, CT scan of the abdomen and pelvis was performed from the lung bases to the proximal femora. Images are reviewed in the axial, sagittal, and coronal planes. IV contrast was administered without complication. A dose lowering technique was utilized adhering to the principles of ALARA. CT DOSE: 2165.1 mGy.cm FINDINGS: CHEST: Thyroid: Imaged portions of the thyroid gland are normal in size and attenuation. Thoracic aorta: The thoracic aorta is normal in caliber and demonstrates standard 3-vessel arch anatomy. No dissection is seen. Pulmonary vasculature: The pulmonary trunk is normal in caliber. There are no filling defects identified in the main, lobar, or segmental pulmonary arteries to indicate pulmonary embolus. Heart: The heart is normal in size and without pericardial effusion. Lungs and pleural spaces: There are trace pleural effusions with dependent atelectasis. No airspace consolidation is seen typical for pneumonia. The trachea and central airways are clear. Mediastinum: There is no mediastinal lymphadenopathy. Yulisa: Clear. Axillae: There is no axillary lymphadenopathy. Bony thorax: No lytic or blastic lesions are identified. There is chronic deformity and postsurgical change seen in the left clavicle. ABDOMEN AND PELVIS: Liver: The contrast-enhanced liver is mildly enlarged measuring 18.3 cm in length. Attenuation is mildly diminished suggesting steatosis. Fatty infiltration is seen adjacent to the falciform ligament. There is no intrahepatic biliary ductal dilatation. The hepatic veins and portal veins are patent. Gallbladder: Unremarkable. Spleen: Normal in size and attenuation. Pancreas: Unremarkable. Adrenal glands: Unremarkable. Kidneys: The contrast enhanced kidneys are normal in size and without hydronephrosis. Mild urothelial thickening and enhancement is seen involving both ureters with faint surrounding infiltration. There is heterogeneous enhancement of the left kidney with left-sided perinephric stranding and fluid. The right kidney enhances normally. A circumaortic left renal vein is incidentally noted. Abdominal vasculature: The abdominal aorta is normal in course and caliber. Bowel: There is mild clonic fecal attention. No bowel obstruction is seen. The appendix is well-visualized and normal. Peritoneum: There is no intraperitoneal free air or abdominal ascites. There is a fat-containing umbilical hernia. A navel piercing is in place. Lymphadenopathy: None. Pelvic viscera: There is mild pericystic infiltration. The uterus and adnexa are normal as visualized noting bilateral ovarian follicles. There is free fluid in the cul-de-sac. Skeletal structures: No lytic or blastic lesions are seen. IMPRESSION: 1. There is no evidence of pulmonary embolus in the main, lobar, or segmental pulmonary arteries. 2. Trace pleural effusions with dependent atelectasis. 3. There is evidence of cystitis with bilateral ascending urinary tract infection and left-sided pyelonephritis. Correlate with clinical findings and urinalysis. 4. Free fluid in the cul-de-sac is nonspecific and likely within physiologic limits. 5. The liver is mildly enlarged and steatotic. 6. Additional findings as above. ACT 112: Negative or not required by law. Electronically signed by: Ronnie Alcazar M.D. 02/09/2025 12:56 PM Chest CTA 02/09/25 12:09 CT ANGIOGRAM OF THE CHEST; CT SCAN OF THE ABDOMEN AND PELVIS WITH IV CONTRAST CLINICAL HISTORY: Elevated d-dimer. Tachycardia. Left flank pain. COMPARISON STUDY: Chest x-ray dated 02/09/2025 TECHNIQUE: Following the IV administration of 118 of Optiray 320, CT angiogram of the chest is performed from the upper abdomen to the thoracic inlet utilizing the pulmonary embolus protocol. Images are reviewed in the axial, sagittal, coronal planes. 3-D MIPS images are created and assessed. Subsequently, CT scan of the abdomen and pelvis was performed from the lung bases to the proximal femora. Images are reviewed in the axial, sagittal, and coronal planes. IV contrast was administered without complication. A dose lowering technique was utilized adhering to the principles of ALARA. CT DOSE: 2165.1 mGy.cm FINDINGS: CHEST: Thyroid: Imaged portions of the thyroid gland are normal in size and attenuation. Thoracic aorta: The thoracic aorta is normal in caliber and demonstrates standard 3-vessel arch anatomy. No dissection is seen. Pulmonary vasculature: The pulmonary trunk is normal in caliber. There are no filling defects identified in the main, lobar, or segmental pulmonary arteries to indicate pulmonary embolus. Heart: The heart is normal in size and without pericardial effusion. Lungs and pleural spaces: There are trace pleural effusions with dependent atelectasis. No airspace consolidation is seen typical for pneumonia. The trachea and central airways are clear. Mediastinum: There is no mediastinal lymphadenopathy. Yulisa: Clear. Axillae: There is no axillary lymphadenopathy. Bony thorax: No lytic or blastic lesions are identified. There is chronic deformity and postsurgical change seen in the left clavicle. ABDOMEN AND PELVIS: Liver: The contrast-enhanced liver is mildly enlarged measuring 18.3 cm in length. Attenuation is mildly diminished suggesting steatosis. Fatty infiltration is seen adjacent to the falciform ligament. There is no intrahepatic biliary ductal dilatation. The hepatic veins and portal veins are patent. Gallbladder: Unremarkable. Spleen: Normal in size and attenuation. Pancreas: Unremarkable. Adrenal glands: Unremarkable. Kidneys: The contrast enhanced kidneys are normal in size and without hydronephrosis. Mild urothelial thickening and enhancement is seen involving both ureters with faint surrounding infiltration. There is heterogeneous enhancement of the left kidney with left-sided perinephric stranding and fluid. The right kidney enhances normally. A circumaortic left renal vein is incidentally noted. Abdominal vasculature: The abdominal aorta is normal in course and caliber. Bowel: There is mild clonic fecal attention. No bowel obstruction is seen. The appendix is well-visualized and normal. Peritoneum: There is no intraperitoneal free air or abdominal ascites. There is a fat-containing umbilical hernia. A navel piercing is in place. Lymphadenopathy: None. Pelvic viscera: There is mild pericystic infiltration. The uterus and adnexa are normal as visualized noting bilateral ovarian follicles. There is free fluid in the cul-de-sac. Skeletal structures: No lytic or blastic lesions are seen.
[2025-02-09 15:29] LABS: Magnesium 1.5 mg/dl (1.7-2.4)
--- NOTE | 2025-02-09 15:36 | Ultrasound Report ---
ULTRASOUND BILATERAL LOWER EXTREMITY VENOUS CLINICAL HISTORY: Elevated d-dimer. COMPARISON STUDY: No prior TECHNIQUE: Real-time, grayscale, and color Doppler sonography of the deep veins of the right and left lower extremity was performed from the inguinal crease to the calf. Compression and augmentation wer e utilized. FINDINGS: There is no sonographic evidence of deep venous thrombosis identified in the right or left lower extremity. The common femoral, superficial femoral, and popliteal veins are patent and normally compressible bilaterally. The greater saphenous vein and the profunda femoris vein at the junction w ith the common femoral vein are clear in both legs. The visualized calf veins are patent bilaterally. IMPRESSION: There is no sonographic evidence of deep venous thrombosis identified in the right or lef t lower extremity. ACT 112: Negative or not required by law. Electronically signed by: Ronnie Alcazar M.D. 02/09/2025 3:35 PM
[2025-02-09] MEDS: POTASSIUM CHLORIDE 10 MEQ TABCR PO STA (15:38)
[2025-02-09] MEDS: SODIUM CHLORIDE 0.9% 1,000 ML IV ONE ×2 (15:39→17:27)
[2025-02-09] MEDS: cefTRIAXone SODIUM 2,000 MG/50 ML BAG IV STA (15:39)
[2025-02-09] MEDS: ACETAMINOPHEN 1,000 MG/100 ML VIAL IV STA (16:09)
[2025-02-09] MEDS: MAGNESIUM SULFATE / D5W 1 GM/100 ML BAG IV ONE (16:27)
[2025-02-09] MEDS ORDERED: ACETAMINOPHEN SUSP 160 MG/5 ML BTL PO STA (17:16)
[2025-02-09] MEDS: IBUPROFEN 600 MG TAB PO STA (17:27)
[2025-02-09] MEDS ORDERED: KETOROLAC TROMETHAMINE 15 MG/ML VIAL IV PRN (18:27)
[2025-02-09] MEDS ORDERED: MAGNESIUM HYDROXIDE SUSP 30 ML UDC PO PRN (18:27)
[2025-02-09] MEDS: SODIUM CHLORIDE 0.9% 1,000 ML IV SCH (20:11)
[2025-02-09] MEDS: DOCUSATE SODIUM 100 MG CAP PO SCH (21:20)
[2025-02-09] MEDS: POLYETHYLENE (MIRALAX) 17 GM PACK PO SCH (21:20)
[2025-02-10] MEDS: ACETAMINOPHEN 325 MG TAB PO PRN (01:00)
[2025-02-10] MEDS: ONDANSETRON INJ 2 MG/ML 2 ML VIAL IV PRN (01:48)
[2025-02-10 07:41] LABS: Hematocrit (blood only) 30.6 % (37.0-47.0); Hemoglobin 10.1 g/dl (12.0-16.0); Immature Granulocytes # (auto) 0.15 K/uL (0.01-0.20); Immature Granulocytes % (auto) 0.9 %; Mean Corpuscular Hemoglobin 29.0 pg (25.0-34.0); Mean Corpuscular Volume 87.9 fL (80.0-100.0); Platelet Count 195 K/uL (130-400); RDW Standard Deviation 39.1 fL (36.4-46.3); Red Blood Count 3.48 M/uL (4.20-5.40); White Blood Count 15.96 K/ul (4.8-10.8)
[2025-02-10 08:00] LABS: Anion Gap 2.0 (3-11); Blood Urea Nitrogen 6.0 mg/dl (6-23); Calcium 7.7 mg/dl (8.6-10.3); Carbon Dioxide 23.0 mmol/L (21-32); Chloride 110.0 mmol/L (98-107); Creatinine Clr Calc Pharmacy 133.3 ml/min; Glucose 128.0 mg/dl (70-99(Fasting)); Potassium 4.3 mmol/L (3.5-5.1); Sodium 135.0 mmol/L (136-145)
[2025-02-10] MEDS: MAGNESIUM CHLORIDE W/CALCIUM 64MG DELAYED REL TAB PO SCH (11:48)
[2025-02-10] MEDS: SODIUM CHLORIDE 0.9% 1,000 ML IV SCH (11:49)
--- NOTE | 2025-02-10 13:13 | Hospitalist Progress Note ---
Date of Service February 10, 2025 Assessment & Plan (1) Pyelonephritis: Plan: Patient is 24 year old female with PMH kidney stone presented to ER with c/o left flank pain x 5 days. Tactile fevers, N&V x 2 days, today urinary urgency. Acute pyelonephritis Sepsis due to above--POA H/O Nephrolithiasis --CT abdomen pelvis: There is evidence of cystitis with bilateral ascending urinary tract infection and left-sided pyelonephritis. Correlate with clinical findings and urinalysis. Free fluid in the cul-de-sac is nonspecific and likely within physiologic limits. The liver is mildly enlarged and steatotic. --Blood cultures pending --Urine culture growing E. coli -- Continue IV Rocephin for now Continue IV fluids Hypokalemia Hypomagnesemia Replete and monitor Elevated D-Dimer D-Dimer: 1999 --CTA Chest: There is no evidence of pulmonary embolus in the main, lobar, or segmental pulmonary arteries. Trace pleural effusions with dependent atelectasis. --Venous Doppler:There is no sonographic evidence of deep venous thrombosis identified in the right or left lower extremity. DVT Px SCDs, ambulate CODE STATUS Full Code Admission and Anticipated Discharge Date Admission Date: February 09, 2025 Subjective Patient is seen and examined at bedside. States having nausea overnight which resolved this morning Also reports having left flank pain Denies any dysuria, hematuria, chest pain, dyspnea, dizziness Febrile this morning Review of Systems Review of Systems: All systems reviewed & are unremarkable except as noted in Subjective Physical Exam Physical Exam: Physical Exam: Vitals signs as noted above General Appearance:Moderately built and nourished, no apparent distress Head: normocephalic, Atraumatic Eyes: normal inspection, EOMI Neck: supple, Trachea midline Respiratory/Chest: Normal breath sounds, CTA, No accessory muscle use Cardiovascular: S1, S2, No murmur Abdomen/GI:Soft, Left flank tender, Bowel sounds present Extremities/Musculoskeletal:normal inspection, no edema Neurologic/Psych:AAOX3, grossly no focal neurological deficits Skin: normal color, warm Results & Data Results & Data Vital Signs (Past 12 Hours) Vital Signs Temp Pulse Resp BP Pulse Ox O2 Del Method 02/10/25 07:45 39.2 C H 93 H 18 109/69 96 Room Air Laboratory Results Short CBC 02/10/25 Range/Units 07:15 WBC 15.96 H (4.8-10.8) K/ul Hgb 10.1 L (12.0-16.0) g/dl Hct 30.6 L (37.0-47.0) % Plt Count 195 (130-400) K/uL BMP 02/10/25 07:15 Sodium 135 L Potassium 4.3 D Chloride 110 H Carbon Dioxide 23 BUN 6 Creatinine 0.72 Glucose 128 H Calcium 7.7 L Urine 02/09/25 Range/Units 13:39 Urine Color Yellow Urine Appearance Clear (Clear) Urine pH 6.5 (4.5-7.5) Ur Specific [place] > 1.045 H (1.000-1.030) Urine Protein 1+ H (Negative) Urine Glucose (UA) Negative (Negative)
[2025-02-10] MEDS: cefTRIAXone SODIUM 2,000 MG/50 ML BAG IV SCH (15:13)
[2025-02-11 07:12] LABS: Hematocrit (blood only) 30.3 % (37.0-47.0); Hemoglobin 10.1 g/dl (12.0-16.0); Mean Corpuscular Hemoglobin 28.8 pg (25.0-34.0); Mean Corpuscular Volume 86.3 fL (80.0-100.0); Platelet Count 213 K/uL (130-400); RDW Standard Deviation 38.4 fL (36.4-46.3); Red Blood Count 3.51 M/uL (4.20-5.40); White Blood Count 14.37 K/ul (4.8-10.8)
[2025-02-11 08:08] LABS: Anion Gap 5.0 (3-11); Blood Urea Nitrogen 4.0 mg/dl (6-23); Calcium 8.1 mg/dl (8.6-10.3); Carbon Dioxide 22.0 mmol/L (21-32); Chloride 109.0 mmol/L (98-107); Creatinine Clr Calc Pharmacy 141.2 ml/min; Glucose 97.0 mg/dl (70-99(Fasting)); Magnesium 2.0 mg/dl (1.7-2.4); Potassium 3.9 mmol/L (3.5-5.1); Sodium 136.0 mmol/L (136-145)
--- NOTE | 2025-02-11 15:12 | Hospitalist Progress Note ---
Date of Service February 11, 2025 Assessment & Plan (1) Pyelonephritis: Plan: Patient is 24 year old female with PMH kidney stone presented to ER with c/o left flank pain x 5 days. Tactile fevers, N&V x 2 days, today urinary urgency. Acute pyelonephritis Sepsis due to above--POA H/O Nephrolithiasis --CT abdomen pelvis: There is evidence of cystitis with bilateral ascending urinary tract infection and left-sided pyelonephritis. Correlate with clinical findings and urinalysis. Free fluid in the cul-de-sac is nonspecific and likely within physiologic limits. The liver is mildly enlarged and steatotic. --Blood cultures: Negative to date --Urine culture grew pansensitive E. coli -- Continue IV Rocephin while hospitalized --IV fluids discontinued Likely discharge in next 24 to 48 hours if remains stable Hypokalemia Hypomagnesemia Replete and monitor Elevated D-Dimer D-Dimer: 1999 --CTA Chest: There is no evidence of pulmonary embolus in the main, lobar, or segmental pulmonary arteries. Trace pleural effusions with dependent atelectasis. --Venous Doppler:There is no sonographic evidence of deep venous thrombosis identified in the right or left lower extremity. DVT Px SCDs, ambulate CODE STATUS Full Code Admission and Anticipated Discharge Date Admission Date: February 09, 2025 Subjective Patient is seen and examined at bedside. No recurrence of nausea Left flank pain much improved No new complaints Afebrile today Denies any dysuria, hematuria, chest pain, dyspnea, dizziness Review of Systems Review of Systems: All systems reviewed & are unremarkable except as noted in Subjective Physical Exam Physical Exam: Physical Exam: Vitals signs as noted above General Appearance:Moderately built and nourished, no apparent distress Head: normocephalic, Atraumatic Eyes: normal inspection, EOMI Neck: supple, Trachea midline Respiratory/Chest: Normal breath sounds, CTA, No accessory muscle use Cardiovascular: S1, S2, No murmur Abdomen/GI:Soft, Left flank tender, Bowel sounds present Extremities/Musculoskeletal:normal inspection, no edema Neurologic/Psych:AAOX3, grossly no focal neurological deficits Skin: normal color, warm Results & Data Results & Data Vital Signs (Past 12 Hours) Vital Signs Temp Pulse Resp BP Pulse Ox O2 Del Method 02/11/25 07:30 36.9 C 82 14 107/67 97 Room Air Laboratory Results Short CBC 02/11/25 Range/Units 06:55 WBC 14.37 H (4.8-10.8) K/ul Hgb 10.1 L (12.0-16.0) g/dl Hct 30.3 L (37.0-47.0) % Plt Count 213 (130-400) K/uL BMP 02/11/25 06:55 Sodium 136 Potassium 3.9 Chloride 109 H Carbon Dioxide 22 BUN 4 L Creatinine 0.68 Glucose 97 Calcium 8.1 L
[2025-02-11 23:56] VITALS: O2SAT 96
[2025-02-12 07:15] LABS: Hematocrit (blood only) 32.2 % (37.0-47.0); Hemoglobin 10.9 g/dl (12.0-16.0); Mean Corpuscular Hemoglobin 29.0 pg (25.0-34.0); Mean Corpuscular Volume 85.6 fL (80.0-100.0); Platelet Count 267 K/uL (130-400); RDW Standard Deviation 37.5 fL (36.4-46.3); Red Blood Count 3.76 M/uL (4.20-5.40); White Blood Count 9.96 K/ul (4.8-10.8)
[2025-02-12 07:35] VITALS: BP 108/67; PULSE 73; RESP 18; TEMP 99.5
[2025-02-12 07:38] LABS: Anion Gap 6.0 (3-11); Blood Urea Nitrogen 5.0 mg/dl (6-23); Calcium 8.5 mg/dl (8.6-10.3); Carbon Dioxide 24.0 mmol/L (21-32); Chloride 107.0 mmol/L (98-107); Creatinine Clr Calc Pharmacy 165.5 ml/min; Glucose 88.0 mg/dl (70-99(Fasting)); Magnesium 2.0 mg/dl (1.7-2.4); Potassium 3.8 mmol/L (3.5-5.1); Sodium 137.0 mmol/L (136-145)
[2025-02-12] MEDS: cefTRIAXone SODIUM 2,000 MG/50 ML BAG IV SCH (11:10)
--- NOTE | 2025-02-12 11:40 | Hospitalist Progress Note ---
Date of Service February 12, 2025 Assessment & Plan (1) Pyelonephritis: Plan: Patient is 24 year old female with PMH kidney stone presented to ER with c/o left flank pain x 5 days. Tactile fevers, N&V x 2 days, today urinary urgency. Acute pyelonephritis Sepsis due to above--POA H/O Nephrolithiasis --CT abdomen pelvis: There is evidence of cystitis with bilateral ascending urinary tract infection and left-sided pyelonephritis. Correlate with clinical findings and urinalysis. Free fluid in the cul-de-sac is nonspecific and likely within physiologic limits. The liver is mildly enlarged and steatotic. --Blood cultures: Negative to date --Urine culture grew pansensitive E. coli -- Continue IV Rocephin while hospitalized --IV fluids discontinued Plan to discharge home on oral antibiotics to complete the course Hypokalemia Hypomagnesemia Replete and monitor Elevated D-Dimer D-Dimer: 1999 --CTA Chest: There is no evidence of pulmonary embolus in the main, lobar, or segmental pulmonary arteries. Trace pleural effusions with dependent atelectasi s. --Venous Doppler:There is no sonographic evidence of deep venous thrombosis identified in the right or left lower extremity. DVT Px SCDs, ambulate CODE STATUS Full Code Disposition Home Admission and Anticipated Discharge Date Admission Date: February 09, 2025 Subjective Patient is seen and examined at bedside. Flank pain resolved No other complaints today Denies any dysuria, hematuria, chest pain, dyspnea, dizziness Plan to discharge home today Review of Systems Review of Systems: All systems reviewed & are unremarkable except as noted in Subjective Physical Exam Physical Exam: Physical Exam: Vitals signs as noted above General Appearance:Moderately built and nourished, no apparent distress Head: normocephalic, Atraumatic Eyes: normal inspection, EOMI Neck: supple, Trachea midline Respiratory/Chest: Normal breath sounds, CTA, No accessory muscle use Cardiovascular: S1, S2, No murmur Abdomen/GI:Soft, non tender, Bowel sounds present Extremities/Musculoskeletal:normal inspection, no edema Neurologic/Psych:AAOX3, grossly no focal neurological deficits Skin: normal color, warm Results & Data Results & Data Vital Signs (Past 12 Hours) Vital Signs Temp Pulse Resp BP Pulse Ox O2 Del Method 02/12/25 07:34 37.5 C 73 18 108/67 96 Room Air Laboratory Results Short CBC 02/12/25 Range/Units 06:39 WBC 9.96 (4.8-10.8) K/ul Hgb 10.9 L (12.0-16.0) g/dl Hct 32.2 L (37.0-47.0) % Plt Count 267 (130-400) K/uL BMP 02/12/25 06:39 Sodium 137 Potassium 3.8 Chloride 107 Carbon Dioxide 24 BUN 5 L Creatinine 0.58 L Glucose 88 Calcium 8.5 L
--- NOTE | 2025-02-12 11:48 | Discharge Summary ---
Date of Service February 12, 2025 Admission HPI Per Admitting Provider Patient is 24 year old female with PMH kidney stone presented to ER with c/o left flank pain x 5 days. Patient states 5 days ago started with aching to left back with some radiation to left flank. She thought at first she may be getting a kidney stone however pain was not as severe as past stone. States history kidney stone that self passed. She states then started with aching pain across lower abdomen as well as left flank and left pain and somewhat into left chest area. Past 2 days with tactile fevers and chills. Did not measure home temperature. Taking ibuprofen with limited relief. States past 2 days with nausea. Had 3 episodes of emesis past 24 hours. Today with urinary urgency with little urine output. Denies hematuria, dysuria, urinary retention. States last BM 5 days ago. Denies history UTI. Denies vaginal symptoms. Denies hematemesis, HEATON, dizziness, syncope, neck pain, SOB, palpitations, cough, sore throat, rhinorrhea, paresthesias, extremity weakness, extremity edema, rashes. Admission Exam Per Admitting Provider General: no distress, WDWN Head: normocephalic, atraumatic Eyes: conjunctiva non-injected, anicteric ENT: normal inspection external ears, nose, mucous membranes dry Neck: supple, trachea midline, non-tender Lungs: clear, no respiratory distress, no wheezing/rhonchi/rales CV: RRR, no murmur, no pretibial edema Abd: normal BS, soft, +tenderness left flank Ext: no cyanosis, no calf tenderness Neuro: A&O x 3, no focal deficits noted, normal affect Skin: +hot, diaphoretic Principal Diagnosis Acute pyelonephritis Sepsis Hypokalemia Hypomagnesemia Discharge Data Allergies Allergy/AdvReac Type Severity Reaction Status Date / Time No Known Allergies Allergy Verified 02/09/25 13:34 Consultations 02/09/25 13:27 ED Decision to Admit Stat Procedures Performed Laboratory Results WBC 9.96 K/ul (4.8-10.8) 02/12/25 06:39 RBC 3.76 M/uL (4.20-5.40) L 02/12/25 06:39 Hgb 10.9 g/dl (12.0-16.0) L 02/12/25 06:39 Hct 32.2 % (37.0-47.0) L 02/12/25 06:39 MCV 85.6 fL (80.0-100.0) 02/12/25 06:39 MCH 29.0 pg (25.0-34.0) 02/12/25 06:39 MCHC 33.9 g/dL (32.0-36.0) 02/12/25 06:39 RDW Std Deviation 37.5 fL (36.4-46.3) 02/12/25 06:39 RDW Coeff of Wenceslao 11.9 % (11.5-14.5) 02/12/25 06:39 Plt Count 267 K/uL (130-400) 02/12/25 06:39 MPV 9.7 fL (9.4-12.4) 02/12/25 06:39 Immature Gran % (Auto) 0.9 % 02/10/25 07:15 Neut % (Auto) 78.3 % 02/10/25 07:15 Lymph % (Auto) 9.9 % 02/10/25 07:15 Page % (Auto) 10.7 % 02/10/25 07:15 Eos % (Auto) 0.1 % 02/10/25 07:15 Baso % (Auto) 0.1 % 02/10/25 07:15 Neut # (Auto) 12.49 K/uL (1.40-6.50) H 02/10/25 07:15 Lymph # (Auto) 1.58 K/uL (1.20-3.40) 02/10/25 07:15 Page # (Auto) 1.70 K/uL (0.11-0.59) H 02/10/25 07:15 Eos # (Auto) 0.02 K/uL (0.00-0.50) 02/10/25 07:15 Baso # (Auto) 0.02 K/uL (0.00-0.20) 02/10/25 07:15 Immature Gran # (Auto) 0.15 K/uL (0.01-0.20) 02/10/25 07:15 D-Dimer 2000 ug/L FEU (0-500) H* 02/09/25 10:44 Sodium 137 mmol/L (136-145) 02/12/25 06:39 Potassium 3.8 mmol/L (3.5-5.1) 02/12/25 06:39 Chloride 107 mmol/L (98-107) 02/12/25 06:39 Carbon Dioxide 24 mmol/L (21-32) 02/12/25 06:39 Anion Gap 6 (3-11) 02/12/25 06:39 BUN 5 mg/dl (6-23) L 02/12/25 06:39 Creatinine 0.58 mg/dl (0.6-1.2) L 02/12/25 06:39 Est Cr Clr Drug Dosing 165.5 ml/min 02/12/25 06:39 eGFR 130.33 02/12/25 06:39 BUN/Creatinine Ratio 8.6 (10-20) L 02/12/25 06:39 Glucose 88 mg/dl (70-99(Fasting)) 02/12/25 06:39 Lactate 0.6 mmol/L (0.4-2.0) 02/09/25 18:02 Calcium 8.5 mg/dl (8.6-10.3) L 02/12/25 06:39 Magnesium 2.0 mg/dl (1.7-2.4) 02/12/25 06:39 Total Bilirubin 0.4 mg/dl (0.2-1.0) 02/09/25 10:44 AST 12 U/L (13-39) L 02/09/25 10:44 ALT 6 U/L (7-52) L 02/09/25 10:44 Alkaline Phosphatase 41 U/L (34-104) 02/09/25 10:44 Troponin I High Sens 6.1 pg/ml (0-14) 02/09/25 10:44 Total Protein 6.5 gm/dl (6.0-8.3) 02/09/25 10:44 Albumin 3.7 gm/dl (3.4-5.0) 02/09/25 10:44 Globulin 2.8 gm/dl (2.5-4.0) 02/09/25 10:44 Albumin/Globulin Ratio 1.3 (0.9-2) 02/09/25 10:44 Lipase 8 U/L (11-82) L 02/09/25 10:44 Procalcitonin 0.35 ng/ml (0-0.5) 02/11/25 06:55 HCG, Qual Negative (Negative) 02/09/25 10:44 Urine Color Yellow 02/09/25 13:39 Urine Appearance Clear (Clear) 02/09/25 13:39 Urine pH 6.5 (4.5-7.5) 02/09/25 13:39 Ur Specific [place] > 1.045 (1.000-1.030) H 02/09/25 13:39 Urine Protein 1+ (Negative) H 02/09/25 13:39 Urine Glucose (UA) Negative (Negative) 02/09/25 13:39 Urine Ketones 2+ (Negative) H 02/09/25 13:39 Urine Blood Trace (Negative) H 02/09/25 13:39 Urine Nitrite Positive (Negative) A 02/09/25 13:39 Urine Bilirubin Negative (Negative) 02/09/25 13:39 Urine Urobilinogen Negative (Negative) 02/09/25 13:39 Ur Leukocyte Esterase 2+ (Negative) H 02/09/25 13:39 Urine WBC (Auto) >50 /hpf (0-5) H 02/09/25 13:39 Urine RBC (Auto) 0-2 /hpf (0-2) 02/09/25 13:39 U Hyaline Cast (Auto) 0-2 /lpf (0-2) 02/09/25 13:39 U Epithel Cells (Auto) 6-10 /hpf (0-2) H 02/09/25 13:39 Urine Bacteria (Auto) 4+ (None Seen) H 02/09/25 13:39 Urine Comment 02/09/25 13:39 Adenovirus (PCR) Not Detected (NotDetected) 02/09/25 10:44 B. pertussis DNA (PCR) Not Detected (NotDetected) 02/09/25 10:44 B.parapertussis DNA PCR Not Detected (NotDetected) 02/09/25 10:44 C. pneumoniae DNA (PCR) Not Detected (NotDetected) 02/09/25 10:44 Coronavirus OC43 (PCR) Not Detected (NotDetected) 02/09/25 10:44 Coronavirus HKU1 (PCR) Not Detected (NotDetected) 02/09/25 10:44 Coronavirus 229E (PCR) Not Detected (NotDetected) 02/09/25 10:44 SARS-CoV-2 (PCR) Not Detected (NotDetected) 02/09/25 10:44 Coronavirus NL63 (PCR) Not Detected (NotDetected) 02/09/25 10:44 Human Metapneumovir PCR Not Detected (NotDetected) 02/09/25 10:44 Influenza Type A (PCR) Not Detected (NotDetected) 02/09/25 10:44 Influenza Type B (PCR) Not Detected (NotDetected) 02/09/25 10:44 M. pneumoniae (PCR) Not Detected (NotDetected) 02/09/25 10:44 Parainfluenza 1 (PCR) Not Detected (NotDetected) 02/09/25 10:44 Parainfluenza 2 (PCR) Not Detected (NotDetected) 02/09/25 10:44 Parainfluenza 3 (PCR) Not Detected (NotDetected) 02/09/25 10:44 Parainfluenza 4 (PCR) Not Detected (NotDetected) 02/09/25 10:44 RSV (PCR) Not Detected (NotDetected) 02/09/25 10:44 Entero/Rhino (PCR) Not Detected (NotDetected) 02/09/25 10:44 Impressions Chest X-Ray 02/09/25 10:37 XR chest 1V portable CLINICAL HISTORY: Pneumonia. COMPARISON STUDY: No previous studies for comparison. FINDINGS: Left clavicular internal fixation is incidentally noted. Lung volumes are mildly diminished. Cardiac size is normal. Mediastinal contours are normal. There is no pneumothorax or pleural effusion. There is apparent mild asymmetric left lower lung opacity. IMPRESSION: Mild left lower lung opacity. Although possibly artifactual or atelectatic, pneumonia could appear similar. Radiographic follow-up is recommended to ensure resolution. ACT 112: Negative or not required by law. Electronically signed by: Awais Hernandez M.D. 02/09/2025 10:56 AM Abdomen/Pelvis CT 02/09/25 12:09 CT ANGIOGRAM OF THE CHEST; CT SCAN OF THE ABDOMEN AND PELVIS WITH IV CONTRAST CLINICAL HISTORY: Elevated d-dimer. Tachycardia. Left flank pain. COMPARISON STUDY: Chest x-ray dated 02/09/2025 TECHNIQUE: Following the IV administration of 118 of Optiray 320, CT angiogram of the chest is performed from the upper abdomen to the thoracic inlet utilizing the pulmonary embolus protocol. Images are reviewed in the axial, sagittal, coronal planes. 3-D MIPS images are created and assessed. Subsequently, CT scan of the abdomen and pelvis was performed from the lung bases to the proximal femora. Images are reviewed in the axial, sagittal, and coronal planes. IV contrast was administered without complication. A dose lowering technique was utilized adhering to the principles of ALARA. CT DOSE: 2165.1 mGy.cm FINDINGS: CHEST: Thyroid: Imaged portions of the thyroid gland are normal in size and attenuation. Thoracic aorta: The thoracic aorta is normal in caliber and demonstrates standard 3-vessel arch anatomy. No dissection is seen. Pulmonary vasculature: The pulmonary trunk is normal in caliber. There are no filling defects identified in the main, lobar, or segmental pulmonary arteries to indicate pulmonary embolus. Heart: The heart is normal in size and without pericardial effusion. Lungs and pleural spaces: There are trace pleural effusions with dependent atelectasis. No airspace consolidation is seen typical for pneumonia. The trachea and central airways are clear. Mediastinum: There is no mediastinal lymphadenopathy. Yulisa: Clear. Axillae: There is no axillary lymphadenopathy. Bony thorax: No lytic or blastic lesions are identified. There is chronic deformity and postsurgical change seen in the left clavicle. ABDOMEN AND PELVIS: Liver: The contrast-enhanced liver is mildly enlarged measuring 18.3 cm in length. Attenuation is mildly diminished suggesting steatosis. Fatty infiltration is seen adjacent to the falciform ligament. There is no intrahepatic biliary ductal dilatation. The hepatic veins and portal veins are patent. Gallbladder: Unremarkable. Spleen: Normal in size and attenuation. Pancreas: Unremarkable. Adrenal glands: Unremarkable. Kidneys: The contrast enhanced kidneys are normal in size and without hydronephrosis. Mild urothelial thickening and enhancement is seen involving both ureters with faint surrounding infiltration. There is heterogeneous enhancement of the left kidney with left-sided perinephric stranding and fluid. The right kidney enhances normally. A circumaortic left renal vein is incidentally noted. Abdominal vasculature: The abdominal aorta is normal in course and caliber. Bowel: There is mild clonic fecal attention. No bowel obstruction is seen. The appendix is well-visualized and normal. Peritoneum: There is no intraperitoneal free air or abdominal ascites. There is a fat-containing umbilical hernia. A navel piercing is in place. Lymphadenopathy: None. Pelvic viscera: There is mild pericystic infiltration. The uterus and adnexa are normal as visualized noting bilateral ovarian follicles. There is free fluid in the cul-de-sac. Skeletal structures: No lytic or blastic lesions are seen. IMPRESSION: 1. There is no evidence of pulmonary embolus in the main, lobar, or segmental pulmonary arteries. 2. Trace pleural effusions with dependent atelectasis. 3. There is evidence of cystitis with bilateral ascending urinary tract infecti on and left-sided pyelonephritis. Correlate with clinical findings and urinalysis. 4. Free fluid in the cul-de-sac is nonspecific and likely within physiologic limits. 5. The liver is mildly enlarged and steatotic. 6. Additional findings as above. ACT 112: Negative or not required by law. Electronically signed by: Ronnie Alcazar M.D. 02/09/2025 12:56 PM Chest CTA 02/09/25 12:09 CT ANGIOGRAM OF THE CHEST; CT SCAN OF THE ABDOMEN AND PELVIS WITH IV CONTRAST CLINICAL HISTORY: Elevated d-dimer. Tachycardia. Left flank pain. COMPARISON STUDY: Chest x-ray dated 02/09/2025 TECHNIQUE: Following the IV administration of 118 of Optiray 320, CT angiogram of the chest is performed from the upper abdomen to the thoracic inlet utilizing the pulmonary embolus protocol. Images are reviewed in the axial, sagittal, coronal planes. 3-D MIPS images are created and assessed. Subsequently, CT scan of the abdomen and pelvis was performed from the lung bases to the proximal femora. Images are reviewed in the axial, sagittal, and coronal planes. IV contrast was administered without complication. A dose lowering technique was utilized adhering to the principles of ALARA. CT DOSE: 2165.1 mGy.cm FINDINGS: CHEST: Thyroid: Imaged portions of the thyroid gland are normal in size and attenuation. Thoracic aorta: The thoracic aorta is normal in caliber and demonstrates standard 3-vessel arch anatomy. No dissection is seen. Pulmonary vasculature: The pulmonary trunk is normal in caliber. There are no filling defects identified in the main, lobar, or segmental pulmonary arteries to indicate pulmonary embolus. Heart: The heart is normal in size and without pericardial effusion. Lungs and pleural spaces: There are trace pleural effusions with dependent atelectasis. No airspace consolidation is seen typical for pneumonia. The trachea and central airways are clear. Mediastinum: There is no mediastinal lymphadenopathy. Yulisa: Clear. Axillae: There is no axillary lymphadenopathy. Bony thorax: No lytic or blastic lesions are identified. There is chronic deformity and postsurgical change seen in the left clavicle. ABDOMEN AND PELVIS: Liver: The contrast-enhanced liver is mildly enlarged measuring 18.3 cm in length. Attenuation is mildly diminished suggesting steatosis. Fatty infiltration is seen adjacent to the falciform ligament. There is no intrahepatic biliary ductal dilatation. The hepatic veins and portal veins are patent. Gallbladder: Unremarkable. Spleen: Normal in size and attenuation. Pancreas: Unremarkable. Adrenal glands: Unremarkable. Kidneys: The contrast enhanced kidneys are normal in size and without hydronephrosis. Mild urothelial thickening and enhancement is seen involving both ureters with faint surrounding infiltration. There is heterogeneous enhancement of the left kidney with left-sided perinephric stranding and fluid. The right kidney enhances normally. A circumaortic left renal vein is incidentally noted. Abdominal vasculature: The abdominal aorta is normal in course and caliber. Bowel: There is mild clonic fecal attention. No bowel obstruction is seen. The appendix is well-visualized and normal. Peritoneum: There is no intraperitoneal free air or abdominal ascites. There is a fat-containing umbilical hernia. A navel piercing is in place. Lymphadenopathy: None. Pelvic viscera: There is mild pericystic infiltration. The uterus and adnexa are normal as visualized noting bilateral ovarian follicles. There is free fluid in the cul-de-sac. Skeletal structures: No lytic or blastic lesions are seen. IMPRESSION: 1. There is no evidence of pulmonary embolus in the main, lobar, or segmental pulmonary arteries. 2. Trace pleural effusions with dependent atelectasis. 3. There is evidence of cystitis with bilateral ascending urinary tract infection and left-sided pyelonephritis. Correlate with clinical findings and urinalysis. 4. Free fluid in the cul-de-sac is nonspecific and likely within physiologic limits. 5. The liver is mildly enlarged and steatotic. 6. Additional findings as above. ACT 112: Negative or not required by law. Electronically signed by: Ronnie Alcazar M.D. 02/09/2025 12:56 PM Venous Doppler Study 02/09/25 14:47 ULTRASOUND BILATERAL LOWER EXTREMITY VENOUS CLINICAL HISTORY: Elevated d-dimer. COMPARISON STUDY: No prior TECHNIQUE: Real-time, grayscale, and color Doppler sonography of the deep veins of the right and left lower extremity was performed from the inguinal crease to the calf. Compression and augmentation were utilized. FINDINGS: There is no sonographic evidence of deep venous thrombosis identified in the right or left lower extremity. The common femoral, superficial femoral, and popliteal veins are patent and normally compressible bilaterally. The greater saphenous vein and the profunda femoris vein at the junction with the common femoral vein are clear in both legs. The visualized calf veins are patent bilaterally. IMPRESSION: There is no sonographic evidence of deep venous thrombosis identified in the right or left lower extremity. ACT 112: Negative or not required by law. Electronically signed by: Ronnie Alcazar M.D. 02/09/2025 3:35 PM Ordered Studies 02/09/25 12:09 CT abd pelvis IV con only Stat CT for pulmonary embolism PE [CT angio chest PE protocol] Stat 02/09/25 14:47 US venous doppler [facility] Urgent Hospital Course (1) Pyelonephritis: Patient is 24 year old female with H kidney stone presented to ER with c/o left flank pain x 5 days. Tactile fevers, N&V x 2 days, today urinary urgency. Acute pyelonephritis Sepsis due to above--POA H/O Nephrolithiasis --CT abdomen pelvis: There is evidence of cystitis with bilateral ascending urinary tract infection and left-sided pyelonephritis. Correlate with clinical findings and urinalysis. Free fluid in the cul-de-sac is nonspecific and likely within physiologic limits. The liver is mildly enlarged and steatotic. --Blood cultures: Negative to date --Urine culture grew pansensitive E. coli -- Continue IV Rocephin while hospitalized --IV fluids discontinued Plan to discharge home on oral antibiotics to complete the course Hypokalemia Hypomagnesemia Replete and monitor Elevated D-Dimer D-Dimer: 1999 --CTA Chest: There is no evidence of pulmonary embolus in the main, lobar, or segmental pulmonary arteries. Trace pleural effusions with dependent atelectasis. --Venous Doppler:There is no sonographic evidence of deep venous thrombosis identified in the right or left lower extremity. DVT Px SCDs, ambulate CODE STATUS Full Code Disposition Home Total Time Total Time Spent Total Time Spent (In Minutes): 52 minutes Discharge Plan Discharge Items Patient Disposition: Home - Self-Care Reason For Visit: PYELO Discharge Diagnosis: Acute pyelonephritis Sepsis Hypokalemia Hypomagnesemia Condition on Discharge: Fair Activity: Per Instructions section Exercise/Sports: Gradually increase as tolerated Non-emergency contact: Primary Care Provider Call non-emergency contact if: you have any medication questions, your symptoms worsen, your pain is concerning for you and you have a fever Follow-up/Referrals: PCP,NO [Primary Care Provider] - Diet: Regular Addtl Attending Provider Instructions: -- Follow-up with your primary care physician in 1 week --Complete the antibiotic course ciprofloxacin as prescribed for 3 more days Seek immediate medical attention if your symptoms reoccur or worsen Please review medication list provided on discharge for any medication changes as instructed. Please call if you have any questions or problems. You can reach a [facility] hospitalist on duty at [facility] 24 hours a day by calling [phone] Pending Studies at Discharge: No Stand-Alone Forms: [facility], Smoking Cessation Medications and DC Order Prescriptions: New magnesium chloride [Mag 64] 64 mg Tablet,Delayed Release (Dr/Ec) 64 mg PO BID Qty: 14 0RF ciprofloxacin HCl 500 mg tablet 500 mg PO BID Qty: 6 0RF Continued desogestrel-ethinyl estradiol [Enskyce] 0.15-0.03 mg tablet 1 tab PO HS Discharge Orders: Discharge Order (Routine); Ordered 02/12/25 Ordered By: Doc Heard Admission Data Admit Date/Time: 02/09/25 13:54 Attending Provider: Doc Heard Admit Provider: Jamie Conrad Primary Care Provider: PCP,NO Other Providers: Jamie Conrad
== END 2025-02-12 13:00 | disposition home or self-care (01) | DRG 872 ==
LOC: ED 09:55 → 3N 13:54 → SUATTDRO 13:54 → 3N 18:49